=== PATIENT | female | born 2000 | race African-American/Black ===

== ENCOUNTER 2022-08-21 17:39 | Emergency (ER) | payer SELFPAY ==
[~2022-08-21] VITALS: Ht 154.9 cm; Wt 46.0 kg
[2022-08-21 17:45] VITALS: BP 108/58
[2022-08-21 18:23] LABS: CLARITY URINE CLEAR (CLEAR); COLOR URINE YELLOW (YELLOW); KETONES URINE TRACE (NEGATIVE); LEUKOCYTE ESTERASE URINE 3+ (NEGATIVE); NITRITE URINE NEGATIVE (NEGATIVE); OCCULT BLOOD URINE NEGATIVE (NEGATIVE); PH URINE 8.5 (4.5-8.0); PROTEIN URINE TRACE (NEGATIVE); SPECIFIC GRAVITY URINE 1.021 (1.005-1.030)
== END 2022-08-21 22:20 | disposition left against medical advice (07) ==
LOC: ER 17:39
DX: Z53.21 Procedure and treatment not carried out due to patient leaving prior to being seen by health care provider (principal); L29.9 Pruritus, unspecified; N89.8 Other specified noninflammatory disorders of vagina
CPT/HCPCS: 81003; 81025; 99281

== ENCOUNTER 2024-03-06 21:20 | Emergency (ER) | payer OTHER ==
[~2024-03-06] VITALS: Ht 157.5 cm; Wt 47.0 kg
[2024-03-06 21:25] VITALS: O2SAT 100
[2024-03-06 21:26] VITALS: BP 102/72; PULSE 74; RESP 18; TEMP 98.5; O2SAT 100
== END 2024-03-07 01:26 | disposition left against medical advice (07) ==
LOC: ER 21:20
DX: M25.512 Pain in left shoulder (principal); V49.59XA Passenger injured in collision with other motor vehicles in traffic accident, initial encounter; Y93.89 Activity, other specified; Y92.89 Other specified places as the place of occurrence of the external cause; Y99.8 Other external cause status
CPT/HCPCS: 99281

== ENCOUNTER 2024-11-24 17:22 | Emergency (ER) | payer OTHER ==
[~2024-11-24] VITALS: Ht 157.5 cm; Wt 47.7 kg
[2024-11-24 17:30] VITALS: BP 106/48; O2SAT 100
[2024-11-24 17:33] VITALS: PULSE 101; RESP 20; O2SAT 99
[2024-11-24] MEDS ORDERED: ACET-2708 MT (18:07)
== END 2024-11-24 18:17 | disposition home or self-care (01) ==
LOC: ER 17:22
DX: R51.9 Headache, unspecified (principal); M54.2 Cervicalgia; Y08.89XA Assault by other specified means, initial encounter; Y93.89 Activity, other specified; Y92.89 Other specified places as the place of occurrence of the external cause; Y99.8 Other external cause status
CPT/HCPCS: 99281; 99282